=== PATIENT | male | born 1995 | race Caucasian/White ===

== ENCOUNTER 2016-09-10 15:27 | Emergency (ER) | payer MEDICAID ==
[~2016-09-10] VITALS: Ht 182.9 cm; Wt 72.7 kg
[2016-09-10] MEDS ORDERED: ALBU8HFA IH (16:20)
[2016-09-10 17:48] VITALS: BP 119/75
[2016-09-10 18:29] LABS: ADD UA MICROSCOPIC NO; APPEARANCE,URINE CLEAR (CLEAR); GLUCOSE, URINE (UA) NEGATIVE (NEGATIVE); KETONES,URINE NEGATIVE (NEGATIVE); LEUKOCYTE ESTERASE ,URINE NEGATIVE (NEGATIVE); OCCULT BLOOD,URINE NEGATIVE (NEGATIVE); PROTEIN,URINE TRACE (NEGATIVE)
== END 2016-09-10 19:17 | disposition home or self-care (01) ==
LOC: EMS 15:37
DX: J45.909 Unspecified asthma, uncomplicated (principal); J06.9 Acute upper respiratory infection, unspecified; R30.9 Painful micturition, unspecified
CPT/HCPCS: 99283